=== PATIENT | female | born 1945 | race Caucasian/White ===

== ENCOUNTER 2023-05-20 10:17 | Day surgery (SDC) | payer MEDICARE, OTHER ==
[~2023-05-20] VITALS: Ht 154.9 cm; Wt 78.7 kg
[2023-05-20] MEDS ORDERED: METF500 (10:47)
[2023-05-20] MEDS ORDERED: PARO20 (10:47)
[2023-05-20] MEDS ORDERED: OMEP20ER (10:47)
[2023-05-20] MEDS ORDERED: LISI5 (10:47)
[2023-05-20] MEDS ORDERED: EUTHYROX50 MCG (10:47)
[2023-05-20] MEDS ORDERED: CENTRUM SILVER1 EAC2 (10:48)
[2023-05-20] MEDS ORDERED: THERA-D2000 UNIT (10:48)
[2023-05-20] MEDS ORDERED: C COMPLEX1000 M1 (10:48)
[2023-05-20] MEDS ORDERED: FLAX (10:48)
[2023-05-20] MEDS ORDERED: ATOR10 (10:48)
[2023-05-20] MEDS ORDERED: ASPI81CH (10:48)
[2023-05-20] MEDS ORDERED: FURO20 (10:49)
[2023-05-20] MEDS ORDERED: GLIM2 (10:49)
[2023-05-20] MEDS ORDERED: SPIR50 (10:49)
== END 2023-05-20 13:00 | disposition home or self-care (01) ==
LOC: ORSCSDS 10:17 → EDBD 11:30 → ORSCSDS 13:00
PROVIDERS: Internal Medicine Gastroenterology
PROC: 0DJ08ZZ Inspection of Upper Intestinal Tract, Via Natural or Artificial Opening Endoscopic (ICD-10-PCS; principal; 2023-05-20 11:30)
DX: K74.60 Unspecified cirrhosis of liver (principal); I85.10 Secondary esophageal varices without bleeding; K75.81 Nonalcoholic steatohepatitis (NASH); K21.9 Gastro-esophageal reflux disease without esophagitis; E11.9 Type 2 diabetes mellitus without complications; I25.2 Old myocardial infarction; I10 Essential (primary) hypertension; K76.6 Portal hypertension; K31.89 Other diseases of stomach and duodenum; Z86.73 Personal history of transient ischemic attack (TIA), and cerebral infarction without residual deficits; Z79.82 Long term (current) use of aspirin; Z79.84 Long term (current) use of oral hypoglycemic drugs; Z79.899 Other long term (current) drug therapy
CPT/HCPCS: 82947; J2704; J7120

== ENCOUNTER 2023-10-20 09:52 | Day surgery (SDC) | payer MEDICARE, OTHER ==
[~2023-10-20] VITALS: Ht 154.9 cm; Wt 76.6 kg
[~2023-10-20 09:52] MED LIST: ASPI81CH PO; ATOR10 PO; C COMPLEX1000 M1; CARV3.125 PO; FLAX PO; FURO20 PO; GLIM2 PO; GLUCOPHAGE1000 M1 PO; LISI5 PO; Lactated Ringer's 1,000 ML IV ONE; MULTI-VITAMIN1 EAC2 PO; OMEGA-3-FISH O1 EAC3 PO; OMEP20ER PO; ONDA4 PO; PARO10; SPIR50 PO; SYNTHROID50 MC1 PO; THERA-D2000 UNIT PO; propofoL 40 ML IV ONE
[2023-10-20] MEDS ORDERED: LISI5 (10:07)
[2023-10-20] MEDS ORDERED: Lactated Ringer's 1,000 ML IV ONE (10:40)
[2023-10-20] MEDS ORDERED: Dextrose 5% 250 ML IV ONE (10:41)
--- NOTE | 2023-10-20 10:51 | NUR ---
10/20/[address] CHANGED IV FLUIDS FROM 1000LR TO 250ML D5
--- NOTE | 2023-10-20 11:38 | NUR ---
10/20/23 1138 Hermelinda Guzman IV FLUIDS DC'D WITH 50ML LTC
== END 2023-10-20 11:31 | disposition home or self-care (01) ==
LOC: ORSCSDS 09:52 → EDBD 13:15 → ORSCSDS 13:15
PROVIDERS: Specialist
PROC: 0DJD8ZZ Inspection of Lower Intestinal Tract, Via Natural or Artificial Opening Endoscopic (ICD-10-PCS; principal; 2023-10-20 11:00)
DX: R93.3 Abnormal findings on diagnostic imaging of other parts of digestive tract (principal); K64.8 Other hemorrhoids; K57.30 Diverticulosis of large intestine without perforation or abscess without bleeding; K74.69 Other cirrhosis of liver; I85.10 Secondary esophageal varices without bleeding; K21.9 Gastro-esophageal reflux disease without esophagitis; R10.84 Generalized abdominal pain; E11.9 Type 2 diabetes mellitus without complications; I10 Essential (primary) hypertension; E66.9 Obesity, unspecified; Z79.82 Long term (current) use of aspirin; Z79.84 Long term (current) use of oral hypoglycemic drugs; Z79.899 Other long term (current) drug therapy
CPT/HCPCS: 82947; J2704; J7060; J7120

== ENCOUNTER 2024-06-23 12:05 | Day surgery (SDC) | payer MEDICARE ==
[~2024-06-23] VITALS: Ht 154.9 cm; Wt 80.0 kg
[~2024-06-23 12:05] MED LIST changes: +LISI5; -propofoL 40 ML IV ONE
[2024-06-23] MEDS ORDERED: JARDIANCE10 MG (12:11)
[2024-06-23] MEDS ORDERED: Lactated Ringer's 1,000 ML IV ONE (12:41)
[2024-06-23] MEDS ORDERED: FentaNYL Citrate 50 MCG/ML 2 ML Injection ONE (13:29)
[2024-06-23] MEDS ORDERED: propofoL 50 ML IV ONE (13:29)
== END 2024-06-23 14:09 | disposition home or self-care (01) ==
LOC: ORSCSDS 12:05
PROVIDERS: Specialist
PROC: 0DJ08ZZ Inspection of Upper Intestinal Tract, Via Natural or Artificial Opening Endoscopic (ICD-10-PCS; principal; 2024-06-23 13:00)
DX: K74.60 Unspecified cirrhosis of liver (principal); Z13.810 Encounter for screening for upper gastrointestinal disorder; I85.00 Esophageal varices without bleeding; K76.6 Portal hypertension; K44.9 Diaphragmatic hernia without obstruction or gangrene; E03.9 Hypothyroidism, unspecified; K31.89 Other diseases of stomach and duodenum; E13.8 Other specified diabetes mellitus with unspecified complications; I10 Essential (primary) hypertension; Z79.899 Other long term (current) drug therapy
CPT/HCPCS: 82947; J2704; J3010; J7120